=== PATIENT | male | born 1940 | race Caucasian/White ===

== ENCOUNTER 2016-03-22 07:47 | Emergency (ER) | payer OTHER ==
[~2016-03-22] VITALS: Ht 175.3 cm; Wt 115.4 kg
[~2016-03-22 07:47] MED LIST: ALTOPREV20 MG PO; AMARYL1 MG PO; ANTACID500 MG PO; ASPERCREME 1035.4 GM TP; ASPIR 8181 M1 PO; ASPIR-LOW81 MG PO; ASPIRIN81 M2 PO; ATROVENT 0.03%30 ML BOTH NARES; ATROVENT 0.06%15 ML BOTH NARES; ATROVENT 0.06%15 ML NS; AUGMENTIN875 MG PO; Ativan PO; Atrovent 0.06% Nasal NS; BEROCCA PLUS1 TABLET PO; BYSTOLIC5 MG PO; CALCARB 600600 MG PO; CALCIUM 600 +1 EACH PO; CALTRATE 600600 MG PO; CARAFATE1 GM PO; CELEBREX200 MG PO; CLARITIN10 M3 PO; COLACE100 MG PO; COUMADIN,JANTO2.5 MG PO; COUMADIN,JANTO7.5 MG PO; CYANOCOBALAM1000 MCG PO; CYCLOBENZAPRINE5 MG PO; CYMBALTA30 MG PO; CYMBALTA60 MG PO; DICLOFENAC POTA50 MG PO; DILTIAZEM 24HR240 MG PO; DITROPAN XL10 MG PO; DURAGESIC100 MCG TD; DURAGESIC100 MICROG TD; ELAVIL25 MG PO; FENTANYL TD; FLEXERIL10 MG PO; FLOMAX0.4 M1 PO; FLOMAX0.4 MG PO; FLORANEX CHE1 TABLET PO; GABAPENTIN300 MG PO; GLIPIZIDE10 M1 PO; HUMALOG100 UNIT/2 SC; HYDROCODONE-ACETAMIN PO; IMITREX100 MG PO; IMITREX50 MG PO; Imitrex PO; KLOR-CON M2020 MEQ PO; LEVALBUTER1.25 MG/3 IH; LEVAQUIN500 MG PO; LEVEMIR FL100 UNIT/1 SC; LEVEMIR FL100 UNITS/ SC; LEVEMIR100 UNIT/1 SQ; LEVEMIR100 UNIT/2 SC; LIDOCAINE20 MG/1 M5 MM; LISINOPRIL-HCT1 EAC3 PO; LISINOPRIL10 MG PO; LISINOPRIL20 MG PO; LOPROX 0.77% CR30 GM TP; LORAZEPAM1 MG PO; LOVASTATIN10 MG PO; LOVASTATIN20 MG PO; LOW DOSE ASPIRI81 M1 PO; LYRICA150 MG PO; MAALOX REGULAR600 MG PO; MAG-OXIDE400 MG PO; MAGNESIUM OXID500 MG PO; MAGNESIUM200 MG PO; MAGNESIUM500 MG PO; MAGOX 400400 MG PO; MEN'S 50+ DAIL1 EACH PO; MEVACOR10 MG PO; MORPHINE SULFAT30 M1 PO; MORPHINE SULFAT60 MG PO; MULTIVITAMIN1 EAC2 PO; MULTIVITAMINS1 EAC2 PO; MYRBETRIQ25 MG PO; Mevacor PO; NITROFURANTOIN100 M3 PO; NOVOLOG 10100 UNITS/ SC; NOVOLOG PE100 UNITS/ SC; ONE-A-DAY ESSE1 EAC1 PO; OXYCODONE HCL10 MG PO; OXYCODONE HCL5 M1 PO; OXYCODONE HCL5 MG PO; OYSCO-500500 MG PO; PANTOPRAZOLE SO40 MG PO; PERCOCET 5/31 TABLET PO; PHENERGAN25 MG PR; PHENERGAN25 MG/ML IM; PRILOSEC20 MG PO; PRINIVIL10 MG PO; PRINZIDE 10-121 EACH PO; PROMETHAZINE HC25 M1 PO; PROMETHAZINE HC25 MG PR; PROMETHEGAN25 MG PR; PROTONIX40 MG PO; PROZAC20 M1 PO; PROzac PO; PYRIDIUM200 MG PO; REGLAN10 MG PO; REGLAN5 MG PO; SIMVASTATIN20 MG PO; SUCRALFATE1 GM PO; TAMSULOSIN HCL0.4 MG PO; TEMAZEPAM15 MG PO; THERAGRAN1 TABLET PO; TIZANIDINE HCL2 MG PO; TOPROL XL50 MG PO; TYLENOL REGULA325 MG PO; Toprol XL PO; Tylenol Extra Streng PO; Tylenol Regular Stre PO; VITAMIN B-12250 MCG PO; VITAMIN B-12500 MC2 PO; VITAMIN B122500 MCG PO; VITAMIN D-32000 UNIT PO; VITAMIN D1000 INTUN PO; VITAMIN D2000 UNIT PO; VITAMIN D32000 UNIT PO; VOLTAREN 1% GE100 GM TP; XARELTO20 MG PO; Zantac PO; [UNRECOGNIZED DRUG - OTHER]; [UNRECOGNIZED DRUG - OTHER] PO; lidocaine; oxyCODONE PO
[2016-03-22] MEDS ORDERED: VALIUM5 MG PO (09:32)
[2016-03-22 09:59] VITALS: BP 162/93
== END 2016-03-22 10:00 | disposition home or self-care (01) ==
LOC: EME 07:47
DX: M54.31 Sciatica, right side (principal); E11.9 Type 2 diabetes mellitus without complications; I10 Essential (primary) hypertension; E78.5 Hyperlipidemia, unspecified; K21.9 Gastro-esophageal reflux disease without esophagitis; Z86.711 Personal history of pulmonary embolism; M54.5 Low back pain; G89.29 Other chronic pain; Z88.8 Allergy status to other drugs, medicaments and biological substances; Z88.1 Allergy status to other antibiotic agents; Z88.5 Allergy status to narcotic agent; Z88.2 Allergy status to sulfonamides
CPT/HCPCS: 99281; 99284

== ENCOUNTER 2016-03-29 16:05 | Emergency (ER) | payer OTHER ==
[~2016-03-29] VITALS: Ht 175.3 cm; Wt 110.6 kg
[~2016-03-29 16:05] MED LIST changes: +VALIUM5 MG PO
[2016-03-29 18:09] LABS: MCH 31.6 PG (29.0-34.0); MCHC 33.3 G/DL (30.0-36.0); MCV 94.9 FL (86-99); MEAN PLAT.VOLUME 9.5 uM^3 (9.0-12.4); PLATELET COUNT 227 K/uL (156-360); RBC DIS.WIDTH-CV 12.7 % (11.8-14.6); RBC DIS.WIDTH-SD 42.7 % (39-53); RED BLOOD COUNT 4.74 M/uL (4.00-5.50); WHITE BLOOD COUNT 6.1 K/uL (4.1-10.2)
[2016-03-29 18:22] LABS: CHLORIDE 103 mEq/L (99-109); POTASSIUM 4.4 mEq/L (3.7-5.4); SODIUM 141 mEq/L (136-147)
[2016-03-29 18:24] LABS: GLUCOSE 119 mg/dL (70-99)
[2016-03-29 18:25] LABS: ANION GAP 7 MEQ/L (2-14)
[2016-03-29 18:26] LABS: TOTAL BILIRUBIN 0.5 mg/dL (0.0-1.0)
[2016-03-29 18:28] LABS: ALKALINE PHOSPHATASE 129 IU/L (3-129); GFR ESTIMATE (CALCULATED) > 59 mL/min/
[2016-03-29 18:29] LABS: UREA NITROGEN (BUN) 13 mg/dL (9-23)
[2016-03-29 18:31] LABS: LIPASE 11 U/L (1.0-51.0)
[2016-03-29 21:32] VITALS: BP 105/80
== END 2016-03-29 21:33 | disposition home or self-care (01) ==
LOC: EME → EDBD 16:05 → EME 21:33
PROVIDERS: Emergency Medicine
DX: S20.212A Contusion of left front wall of thorax, initial encounter (principal); R10.12 Left upper quadrant pain; R06.02 Shortness of breath; V48.4XXA Person boarding or alighting a car injured in noncollision transport accident, initial encounter; W05.0XXA Fall from non-moving wheelchair, initial encounter; R00.0 Tachycardia, unspecified; I48.91 Unspecified atrial fibrillation; Z79.01 Long term (current) use of anticoagulants; I10 Essential (primary) hypertension; E78.5 Hyperlipidemia, unspecified; E11.9 Type 2 diabetes mellitus without complications; Z79.4 Long term (current) use of insulin; Z86.711 Personal history of pulmonary embolism; Z79.82 Long term (current) use of aspirin
CPT/HCPCS: 70450; 71260; 74177; 80053; 81003; 83605; 83690; 85027; 93005; 99281; 99285

== ENCOUNTER 2016-05-16 15:50 | Emergency (ER) | payer OTHER ==
[~2016-05-16] VITALS: Ht 172.7 cm; Wt 118.0 kg
[2016-05-16] MEDS ORDERED: BACTRIM,SEPT1 TABLET PO (19:09)
[2016-05-16] MEDS ORDERED: KEFLEX500 MG PO (19:09)
[2016-05-16 19:57] VITALS: BP 162/65
== END 2016-05-16 19:58 | disposition home or self-care (01) ==
LOC: EME 15:50
PROC: 0H9HXZZ Drainage of Right Upper Leg Skin, External Approach (ICD-10-PCS; principal; 2016-05-16)
DX: L02.415 Cutaneous abscess of right lower limb (principal); Z86.711 Personal history of pulmonary embolism; Z86.718 Personal history of other venous thrombosis and embolism; E11.65 Type 2 diabetes mellitus with hyperglycemia; Z79.4 Long term (current) use of insulin; Z79.01 Long term (current) use of anticoagulants; Z79.82 Long term (current) use of aspirin; I10 Essential (primary) hypertension; E78.5 Hyperlipidemia, unspecified
CPT/HCPCS: 87070; 87075; 87076; 87205; 99281; 99284

== ENCOUNTER 2016-10-16 21:44 | Emergency (ER) | payer OTHER ==
[~2016-10-16] VITALS: Ht 177.8 cm; Wt 119.4 kg
[~2016-10-16 21:44] MED LIST changes: +BACTRIM,SEPT1 TABLET PO; +KEFLEX500 MG PO
[2016-10-17 01:50] VITALS: BP 125/87
== END 2016-10-17 01:52 | disposition home or self-care (01) ==
LOC: EME 21:44
DX: M54.6 Pain in thoracic spine (principal); W08.XXXA Fall from other furniture, initial encounter; M85.88 Other specified disorders of bone density and structure, other site; Z86.711 Personal history of pulmonary embolism; Z79.01 Long term (current) use of anticoagulants; I10 Essential (primary) hypertension; E78.5 Hyperlipidemia, unspecified; E11.9 Type 2 diabetes mellitus without complications; Z79.4 Long term (current) use of insulin; I25.10 Atherosclerotic heart disease of native coronary artery without angina pectoris; Z79.82 Long term (current) use of aspirin
CPT/HCPCS: 71250; 72128; 72131; 80048; 85027; 85610; 85730; 86850; 86900; 86901; 93005; 99281; 99285; J2270; J2405

== ENCOUNTER 2017-02-18 23:55 | Emergency (ER) | payer OTHER ==
[~2017-02-18] VITALS: Ht 175.3 cm; Wt 118.2 kg
[2017-02-18 23:59] VITALS: BP 139/97
== END 2017-02-19 02:10 | disposition left against medical advice (07) ==
LOC: EME 23:55
DX: R53.1 Weakness (principal); Z53.21 Procedure and treatment not carried out due to patient leaving prior to being seen by health care provider
CPT/HCPCS: 82948; 93005

== ENCOUNTER → 2017-06-30 | Outpatient (CLI) | payer OTHER | END | disposition home or self-care (01) | LOC: RAD 10:35 | DX: S43.012A Anterior subluxation of left humerus, initial encounter (principal); M24.112 Other articular cartilage disorders, left shoulder; M62.512 Muscle wasting and atrophy, not elsewhere classified, left shoulder; Z87.81 Personal history of (healed) traumatic fracture | CPT/HCPCS: 73200 ==